=== PATIENT | male | born 1985 | race Caucasian/White ===

== ENCOUNTER → 2023-06-12 | Day surgery (SDC) | payer OTHER | END | disposition home or self-care (01) | LOC: JRADIR 11:29 | PROVIDERS: ATTEND Orthopaedic Surgery | PROC: BP38YZZ Magnetic Resonance Imaging (MRI) of Right Shoulder using Other Contrast (ICD-10-PCS; principal; 2023-06-12) | DX: M25.511 Pain in right shoulder (principal) | CPT/HCPCS: 23350; 73040-TC-FY; 73222-TC ==